=== PATIENT | male | born 1955 | race African-American/Black ===

== ENCOUNTER 2021-07-18 14:10 | Outpatient (CLI) | payer MEDICARE, MEDICAID ==
[2021-07-18 15:09] LABS: Estimated GFR-MDRD - POC Greater than 90
== END 2021-07-18 14:11 | disposition home or self-care (01) ==
LOC: CSHMRI 14:10
PROVIDERS: ATTEND Radiology Radiation Oncology
DX: C61 Malignant neoplasm of prostate (principal); M89.9 Disorder of bone, unspecified; M47.814 Spondylosis without myelopathy or radiculopathy, thoracic region; M51.34 Other intervertebral disc degeneration, thoracic region; M89.8X8 Other specified disorders of bone, other site
CPT/HCPCS: 72157; 72197; 82565